=== PATIENT | female | born 1960 | race Caucasian/White ===

== ENCOUNTER 2021-03-17 02:57 | Observation (INO) | payer OTHER ==
[~2021-03-17] VITALS: Ht 162.6 cm; Wt 55.4 kg
[2021-03-17] VITALS (8 sets, daily range): BP systolic 113–173; BP diastolic 72–94
[2021-03-17] MEDS ORDERED: MORPHINE 4 MG SYG (4MG/1ML) IVP SCH (04:00)
[2021-03-17] MEDS ORDERED: ONDANSETRON HCL 4 MG/2 ML VIAL IVP SCH (04:00)
[2021-03-17 04:33] LABS: BASOPHILS % (AUTO) 0.7 % (0.0-5.0); EOSINOPHILS % (AUTO) 2.7 % (0.0-8.0); HEMATOCRIT 39.5 % (36-48); LYMPHOCYTES % (AUTO) 13.9 % (21.0-51.0); MEAN CORPUSCULAR HEMOGLOBIN 32.7 pg (27.0-33.0); MEAN CORPUSCULAR HGB CONC 33.7 g/dL (32.0-36.0); MEAN CORPUSCULAR VOLUME 97.1 fL (79-99); MONOCYTES % (AUTO) 6.8 % (3.0-13.0); NEUTROPHILS % (AUTO) 75.6 % (40.0-77.0); PLATELET COUNT (AUTO) 100 K/uL (130-400); RED BLOOD CELL COUNT(AUTO) 4.07 MIL/uL (4.00-5.50); RED CELL DISTRIBUTION WIDTH 14.1 % (11.0-15.5)
[2021-03-17 04:38] LABS: CARBON DIOXIDE 27 mmol/L (21-32); CHLORIDE 102 mmol/L (101-111); CREATININE 0.9 mg/dL (0.5-1.5); GLOMERULAR FILTR. RATE CALC 68 mL/min (>60); GLUCOSE,RANDOM 85 mg/dL (70-105); POTASSIUM 3.1 mmol/L (3.5-5.1); SODIUM SERUM 140 mmol/L (136-145); UREA NITROGEN, BLOOD 4 mg/dL (7-18)
[2021-03-17 04:42] LABS: INR 1.16 (0.85-1.15); PROTHROMBIN TIME 12.5 SEC (9.6-11.6)
[2021-03-17 04:54] LABS: ALANINE AMINOTRANSFERASE 42 U/L (12-78); ALBUMIN 2.7 g/dL (3.5-5.0); ASPARTATE AMINOTRANSFERASE 126 U/L (10-37); BILIRUBIN,TOTAL 2.1 mg/dL (0.2-1.0); CREATINE KINASE, TOTAL 188 U/L (21-232); MYOGLOBIN 77 ng/mL (10-92); TOTAL PROTEIN, SERUM 9.7 g/dL (6.0-8.3); TROPONIN I < 0.04 ng/mL (0.00-0.06)
[2021-03-17 04:55] LABS: B-TYPE NATRIURETIC PEPTIDE 17 pg/mL (0-100)
[2021-03-17 05:08] LABS: BASOPHILS % (MANUAL) 2 % (0-2); EOSINOPHILS % (MANUAL) 2 % (1-6); LYMPHOCYTES % (MANUAL) 13 % (22-44); MAN.DIFF COMMENT-IMPRESSION MANUAL DIFFERENTIAL; MONOCYTES % (MANUAL) 6 % (2-9); SEGMENTED NEUTROPHILS % 77 % (40-70)
[2021-03-17 05:09] LABS: PLATELET MORPHOLOGY COMMENT MARKED DECREASE
[2021-03-17 05:58] LABS: APPEARANCE,URINE Clear (CLEAR); BILIRUBIN,URINE Negative (NEGATIVE); COLOR,URINE Yellow (YELLOW); GLUCOSE, URINE (UA) Negative (NEGATIVE); KETONES,URINE Negative (NEGATIVE); LEUKOCYTE ESTERASE ,URINE Large (NEGATIVE); NITRATE,URINE Positive (NEGATIVE); OCCULT BLOOD,URINE Small (NEGATIVE); PH,URINE 6.5 (5.0-8.0); PROTEIN,URINE Negative (NEGATIVE)
[2021-03-17 06:09] LABS: BACTERIA,URINE Moderate /HPF (None Seen); SQUAMOUS EPITHELIAL CELL,UR Few /HPF (0-2)
[2021-03-17] MEDS ORDERED: FUROSEMIDE 20MG VIAL (10MG/ML) IV SCH (07:00)
[2021-03-17] MEDS ORDERED: CEFTRIAXONE SODIUM 1 GM IVP SCH ×2 (07:00→19:45)
[2021-03-17] MEDS ORDERED: POTASSIUM CHLORIDE 20MEQ/100ML 100 ML IV PRN (07:15)
[2021-03-17] MEDS ORDERED: SODIUM CHLORIDE 0.9% 10 ML VIAL IVP PRN (07:15)
[2021-03-17] MEDS ORDERED: LIDOCAINE HCL-MPF 1% 2ML VIAL IJ PRN (07:15)
[2021-03-17] MEDS ORDERED: KCL 20 MEQ ERTAB PO PRN (07:15)
[2021-03-17] MEDS: SPIRONOLACTONE 25 MG TAB PO SCH ×2 (07:47→21:32)
[2021-03-17] MEDS: POTASSIUM CHLORIDE 10% ELIXIR 20 MEQ/15 ML UDCUP PO PRN ×4 (07:50→16:22)
[2021-03-17] MEDS ORDERED: ENOXAPARIN SODIUM 30 MG/0.3 ML SQ SCH (09:00)
[2021-03-17] MEDS ORDERED: PHARMACY COMMUNICATION MISC SCH (18:30)
[2021-03-17] MEDS ORDERED: KETOROLAC 30MG VIAL (30MG/ML) IV SCH (18:30)
[2021-03-17] MEDS ORDERED: ONDANSETRON HCL 4 MG/2 ML VIAL IVP PRN (18:30)
[2021-03-17] MEDS: ACETAMINOPHEN 325 MG TAB PO PRN (18:51)
[2021-03-18] MEDS ORDERED: TYLENOL PM PO (00:35)
[2021-03-18 04:06] VITALS: BP 148/94
[2021-03-18 05:53] LABS: MEAN CORPUSCULAR HEMOGLOBIN 32.8 pg (27.0-33.0); MEAN CORPUSCULAR HGB CONC 33.7 g/dL (32.0-36.0); MEAN CORPUSCULAR VOLUME 97.4 fL (79-99); PLATELET COUNT (AUTO) 69 K/uL (130-400); RED BLOOD CELL COUNT(AUTO) 3.08 MIL/uL (4.00-5.50); RED CELL DISTRIBUTION WIDTH 13.8 % (11.0-15.5); WHITE BLOOD COUNT (AUTO) 2.3 K/uL (4.8-10.8)
[2021-03-18 06:02] LABS: ALBUMIN 1.9 g/dL (3.5-5.0); BILIRUBIN,TOTAL 1.3 mg/dL (0.2-1.0); POTASSIUM 3.7 mmol/L (3.5-5.1); TOTAL PROTEIN, SERUM 6.8 g/dL (6.0-8.3)
[2021-03-18 06:12] LABS: EOSINOPHILS % (MANUAL) 2 % (1-6); LYMPHOCYTES % (MANUAL) 8 % (22-44); MAN.DIFF COMMENT-IMPRESSION MANUAL DIFFERENTIAL; MONOCYTES % (MANUAL) 7 % (2-9); SEGMENTED NEUTROPHILS % 83 % (40-70)
[2021-03-18 06:13] LABS: PLATELET MORPHOLOGY COMMENT DECREASED
[2021-03-18 07:54] VITALS: BP 155/86
[2021-03-18] MEDS: ACETAMINOPHEN 325 MG TAB PO PRN (08:10)
[2021-03-18] MEDS ORDERED: THIAMINE HCL 100 MG/ML 2ML VIAL IVP SCH (09:00)
[2021-03-18] MEDS ORDERED: CYANOCOBALAMIN (VITAMIN B-12) 1000 MCG/ML 1ML VIAL IM SCH (09:00)
[2021-03-18] MEDS ORDERED: MAGNESIUM 2GM PREMIX 50ML 50 ML IV SCH (09:00)
[2021-03-18 11:17] VITALS: BP 140/89
[2021-03-18] MEDS ORDERED: BUSPIRONE HCL 5 MG TABLET PO SCH (21:00)
== END 2021-03-18 16:40 | disposition left against medical advice (07) ==
LOC: EDH 03:57 → EDHIP 03:58 → 3BH 23:35
PROVIDERS: ADMIT Internal Medicine; ATTEND Internal Medicine
DX: L03.119 Cellulitis of unspecified part of limb (principal); E88.09 Other disorders of plasma-protein metabolism, not elsewhere classified; E87.6 Hypokalemia; K70.31 Alcoholic cirrhosis of liver with ascites; F41.1 Generalized anxiety disorder; D61.818 Other pancytopenia; I10 Essential (primary) hypertension; K86.1 Other chronic pancreatitis; N39.0 Urinary tract infection, site not specified; F17.210 Nicotine dependence, cigarettes, uncomplicated; Z91.14 Patient's other noncompliance with medication regimen; Z79.899 Other long term (current) drug therapy; Z88.8 Allergy status to other drugs, medicaments and biological substances; Z88.6 Allergy status to analgesic agent
CPT/HCPCS: 36415 ×2; 71250; 74176; 76705; 80053 ×2; 81001; 82550; 83735; 83874; 83880; 84132; 84443; 84484; 85025; 85027; 85610; 87077; 87088; 87186; 93005; 93970; 96365; 96372 ×2; 96375 ×2; 99285; G0378 ×34; J0696; J1650; J1940; J2270; J2405; J3411; J3420; J3475

== ENCOUNTER 2023-12-06 10:31 | Emergency (ER) | payer BC, OTHER ==
[~2023-12-06] VITALS: Ht 162.6 cm; Wt 60.8 kg
[~2023-12-06 10:31] MED LIST: TYLENOL PM PO
[2023-12-06 11:01] LABS: BASOPHILS # (AUTO) 0.02 K/uL (0.00-0.20); BASOPHILS % (AUTO) 0.8 % (0.0-5.0); EOSINOPHILS # (AUTO) 0.06 K/uL (0.00-0.70); EOSINOPHILS % (AUTO) 2.4 % (0.0-8.0); HEMATOCRIT 35.2 % (36-48); IMMATURE GRANULOCYTE ABSOLUTE 0.01 K/uL (0-1); LYMPHOCYTES # (AUTO) 0.2 K/uL (1.0-4.8); LYMPHOCYTES % (AUTO) 7.5 % (21.0-51.0); MEAN CORPUSCULAR HEMOGLOBIN 28.3 pg (27.0-33.0); MEAN CORPUSCULAR HGB CONC 32.7 g/dL (32.0-36.0); MEAN CORPUSCULAR VOLUME 86.7 fL (79-99); MONOCYTES # (AUTO) 0.3 K/uL (0.1-1.0); MONOCYTES % (AUTO) 11.9 % (3.0-13.0); NEUTROPHILS # (AUTO) 1.9 K/uL (1.8-7.7); PLATELET COUNT (AUTO) 85 K/uL (130-400); RED BLOOD CELL COUNT(AUTO) 4.06 MIL/uL (4.00-5.50); RED CELL DISTRIBUTION WIDTH 16.7 % (11.0-15.5); WHITE BLOOD COUNT (AUTO) 2.5 K/uL (4.8-10.8)
[2023-12-06 11:08] LABS: CREATININE 1.3 mg/dL (0.5-1.5); POTASSIUM 3.8 mmol/L (3.5-5.1)
[2023-12-06 11:12] LABS: ALBUMIN 1.8 g/dL (3.5-5.0); BILIRUBIN,TOTAL 0.6 mg/dL (0.2-1.0); MAGNESIUM 1.6 mg/dL (1.80-2.40); TOTAL PROTEIN, SERUM 7.4 g/dL (6.0-8.3)
[2023-12-06 11:34] LABS: INR 1.12 (0.85-1.15); PROTHROMBIN TIME 12.9 SEC (9.6-11.6)
[2023-12-06 11:35] LABS: PARTIAL THROMBOPLASTIN TIME 33.9 SEC (26.3-35.5)
[2023-12-06 12:05] LABS: EOSINOPHILS % (MANUAL) 2 % (1-6); LYMPHOCYTES % (MANUAL) 7 % (22-44); MAN.DIFF COMMENT-IMPRESSION MANUAL DIFFERENTIAL; MONOCYTES % (MANUAL) 13 % (2-9); PLATELET MORPHOLOGY COMMENT DECREASED; SEGMENTED NEUTROPHILS % 78 % (40-70); TOTAL CELLS COUNTED 100
[2023-12-06] MEDS: ALBUMIN (HUMAN) 25% 200 ML IV ONE (12:13)
[2023-12-06 14:01] VITALS: BP 165/94; PULSE 95; RESP 18; O2SAT 95
[2023-12-06] MEDS: MAGNESIUM OXIDE 400 MG TABLET PO ONE (14:43)
== END 2023-12-06 14:43 | disposition home or self-care (01) ==
LOC: EDH 10:31
DX: R18.8 Other ascites (principal); E83.42 Hypomagnesemia; E83.51 Hypocalcemia; D61.818 Other pancytopenia; K74.60 Unspecified cirrhosis of liver; I10 Essential (primary) hypertension; F17.200 Nicotine dependence, unspecified, uncomplicated
CPT/HCPCS: 49083; 99285; 83735; 80053; 82140; 83690; 85025; 85610; 85730; 36415; P9047; C1729

== ENCOUNTER 2023-12-27 09:41 | Emergency (ER) | payer BC ==
[~2023-12-27] VITALS: Ht 162.6 cm; Wt 62.6 kg
[2023-12-27 10:19] LABS: BASOPHILS # (AUTO) 0.02 K/uL (0.00-0.20); BASOPHILS % (AUTO) 0.9 % (0.0-5.0); EOSINOPHILS # (AUTO) 0.07 K/uL (0.00-0.70); EOSINOPHILS % (AUTO) 3.1 % (0.0-8.0); HEMATOCRIT 37.1 % (36-48); IMMATURE GRANULOCYTE ABSOLUTE 0.01 K/uL (0-1); LYMPHOCYTES # (AUTO) 0.2 K/uL (1.0-4.8); MEAN CORPUSCULAR HEMOGLOBIN 28.5 pg (27.0-33.0); MEAN CORPUSCULAR HGB CONC 32.1 g/dL (32.0-36.0); MEAN CORPUSCULAR VOLUME 88.8 fL (79-99); MONOCYTES # (AUTO) 0.3 K/uL (0.1-1.0); MONOCYTES % (AUTO) 10.9 % (3.0-13.0); NEUTROPHILS # (AUTO) 1.8 K/uL (1.8-7.7); NEUTROPHILS % (AUTO) 77.7 % (40.0-77.0); PLATELET COUNT (AUTO) 97 K/uL (130-400); RED BLOOD CELL COUNT(AUTO) 4.18 MIL/uL (4.00-5.50); WHITE BLOOD COUNT (AUTO) 2.3 K/uL (4.8-10.8)
[2023-12-27] MEDS ORDERED: ALBUMIN (HUMAN) 25% 100 ML IV PRN ×2 (10:30)
[2023-12-27 10:38] LABS: INR 1.06 (0.85-1.15); PROTHROMBIN TIME 12.4 SEC (9.6-11.6)
[2023-12-27 10:39] LABS: CREATININE 1.4 mg/dL (0.5-1.5); POTASSIUM 4.1 mmol/L (3.5-5.1)
[2023-12-27 10:40] LABS: PARTIAL THROMBOPLASTIN TIME 31.7 SEC (26.3-35.5)
[2023-12-27 10:44] LABS: ALBUMIN 1.9 g/dL (3.5-5.0); BILIRUBIN,TOTAL 0.7 mg/dL (0.2-1.0); TOTAL PROTEIN, SERUM 7.6 g/dL (6.0-8.3)
[2023-12-27 12:09] LABS: EOSINOPHILS % (MANUAL) 2 % (1-6); LYMPHOCYTES % (MANUAL) 7 % (22-44); MAN.DIFF COMMENT-IMPRESSION MANUAL DIFFERENTIAL; MONOCYTES % (MANUAL) 9 % (2-9); REACTIVE LYMPHOCYTES 1 % (0-0); SEGMENTED NEUTROPHILS % 81 % (40-70); TOTAL CELLS COUNTED 100
[2023-12-27 12:10] LABS: PLATELET MORPHOLOGY COMMENT DECREASED
[2023-12-27 13:20] VITALS: BP 145/88; PULSE 78; RESP 18; O2SAT 98
== END 2023-12-27 13:21 | disposition home or self-care (01) ==
LOC: EDH 09:41
DX: K74.60 Unspecified cirrhosis of liver (principal); R18.8 Other ascites; F17.200 Nicotine dependence, unspecified, uncomplicated; Z88.8 Allergy status to other drugs, medicaments and biological substances
CPT/HCPCS: 49083; 99285; 96365; 80053; 85025; 85610; 85730; 36415; C1729

== ENCOUNTER 2024-01-20 11:34 | Emergency (ER) | payer BC ==
[~2024-01-20] VITALS: Ht 162.6 cm; Wt 47.2 kg
[~2024-01-20 11:34] MED LIST changes: +FURO40TA5 PO; +SPIR50TA5 PO
[2024-01-20 11:59] VITALS: BP 116/73; PULSE 94; RESP 18; O2SAT 97
[2024-01-20] MEDS ORDERED: LEVETIRACETAM 1,000 MG in 0.9%NACL 100ML 100 ML IV SCH ×2 (12:00→14:00)
[2024-01-20] MEDS: LEVETIRACETAM 1,000 MG in 0.9%NACL 100ML 100 ML IV ONE (12:10)
[2024-01-20 13:12] LABS: BASOPHILS # (AUTO) 0.01 K/uL (0.00-0.20); BASOPHILS % (AUTO) 0.5 % (0.0-5.0); EOSINOPHILS # (AUTO) 0.04 K/uL (0.00-0.70); EOSINOPHILS % (AUTO) 2.2 % (0.0-8.0); HEMATOCRIT 27.6 % (36-48); IMMATURE GRANULOCYTE ABSOLUTE 0.01 K/uL (0-1); LYMPHOCYTES # (AUTO) 0.1 K/uL (1.0-4.8); LYMPHOCYTES % (AUTO) 5.5 % (21.0-51.0); MEAN CORPUSCULAR HEMOGLOBIN 28.5 pg (27.0-33.0); MEAN CORPUSCULAR HGB CONC 33.7 g/dL (32.0-36.0); MEAN CORPUSCULAR VOLUME 84.7 fL (79-99); MONOCYTES # (AUTO) 0.3 K/uL (0.1-1.0); MONOCYTES % (AUTO) 14.3 % (3.0-13.0); NEUTROPHILS # (AUTO) 1.4 K/uL (1.8-7.7); PLATELET COUNT (AUTO) 70 K/uL (130-400); RED BLOOD CELL COUNT(AUTO) 3.26 MIL/uL (4.00-5.50); RED CELL DISTRIBUTION WIDTH 15.7 % (11.0-15.5); WHITE BLOOD COUNT (AUTO) 1.8 K/uL (4.8-10.8)
[2024-01-20 13:23] LABS: CREATININE 1.5 mg/dL (0.5-1.0); POTASSIUM 3.6 mmol/L (3.5-5.1)
[2024-01-20 13:28] LABS: ALBUMIN 1.8 g/dL (3.5-5.0); BILIRUBIN,TOTAL 0.5 mg/dL (0.2-1.0); TOTAL PROTEIN, SERUM 6.4 g/dL (6.0-8.3)
[2024-01-20 14:08] LABS: PLATELET MORPHOLOGY COMMENT DECREASED
[2024-01-20] MEDS: ACETAMINOPHEN 325 MG TAB PO ONE (14:30)
[2024-01-20] MEDS ORDERED: POTASSIUM SUPPLIMENT PO (22:31)
[2024-01-20] MEDS ORDERED: KEPPRA PO (22:32)
== END 2024-01-20 15:01 | disposition home or self-care (01) ==
LOC: EDH 11:34
DX: G40.909 Epilepsy, unspecified, not intractable, without status epilepticus (principal); Z79.899 Other long term (current) drug therapy; Z98.890 Other specified postprocedural states; Z88.8 Allergy status to other drugs, medicaments and biological substances
CPT/HCPCS: 99284; 96374; 80053; 85025; 36415; J1953

== ENCOUNTER 2024-01-20 20:17 | Observation (INO) | payer BC ==
[~2024-01-20] VITALS: Ht 162.6 cm; Wt 49.4 kg
[2024-01-20] MEDS: DEXTROSE 5 %-0.45 % NACL 1,000 ML IV SCH (21:27)
[2024-01-20] MEDS ORDERED: POTASSIUM SUPPLIMENT PO (22:31)
[2024-01-20] MEDS ORDERED: KEPPRA PO (22:32)
[2024-01-20 23:05] VITALS: O2SAT 96
[2024-01-21] VITALS (17 sets, daily range): BP systolic 96–159; BP diastolic 54–92; PULSE 84–96; RESP 17–19; O2SAT 94–95
[2024-01-21 06:18] LABS: PROTHROMBIN TIME 11.8 SEC (9.6-11.6)
[2024-01-21 14:47] LABS: BODY FLUID RBC 997 /cu. mm.; BODY FLUID WBC 126 /cu. mm.
[2024-01-21 15:37] LABS: SPECIMENTYPE,BODY FLUID ASCITES
[2024-01-21 15:38] LABS: APPEARANCE BODY FLUID CLOUDY (CLEAR); COLOR,BODY FLUID OTHER (LT YELLOW); TOTAL VOLUME,BODY FLUID 2100 mL
[2024-01-21 18:33] LABS: BF LYMPHOCYTE 24 %; BF MACROPHAGE 20; BF MESOTHELIAL 18 %; BF TOTAL CELLS COUNTED 50
[2024-01-22 01:19] LABS: AMPHET/METH SCREEN,URINE NEGATIVE (NEGATIVE); BARBITURATE SCREEN, URINE NEGATIVE (NEGATIVE); BENZODIAZEPINES SCREEN,URINE NEGATIVE (NEGATIVE); CANNABINOID SCREEN,URINE NEGATIVE (NEGATIVE); COCAINE SCREEN,URINE NEGATIVE (NEGATIVE); OPIATE SCREEN,URINE NEGATIVE (NEGATIVE); PHENCYCLIDINE SCREEN,URINE NEGATIVE (NEGATIVE)
[2024-01-22 04:00] VITALS: BP 109/57; PULSE 83; RESP 18
[2024-01-22 05:12] LABS: HEMATOCRIT 32.9 % (36-48); MEAN CORPUSCULAR HEMOGLOBIN 28.2 pg (27.0-33.0); MEAN CORPUSCULAR HGB CONC 32.5 g/dL (32.0-36.0); MEAN CORPUSCULAR VOLUME 86.8 fL (79-99); PLATELET COUNT (AUTO) 92 K/uL (130-400); RED BLOOD CELL COUNT(AUTO) 3.79 MIL/uL (4.00-5.50); RED CELL DISTRIBUTION WIDTH 15.4 % (11.0-15.5); WHITE BLOOD COUNT (AUTO) 2.6 K/uL (4.8-10.8)
[2024-01-22 05:36] LABS: ALBUMIN 1.8 g/dL (3.5-5.0); BILIRUBIN,TOTAL 0.6 mg/dL (0.2-1.0); CREATININE 1.3 mg/dL (0.5-1.0); POTASSIUM 3.9 mmol/L (3.5-5.1); TOTAL PROTEIN, SERUM 6.6 g/dL (6.0-8.3)
[2024-01-22 05:44] LABS: BASOPHILS % (MANUAL) 3 % (0-2); EOSINOPHILS % (MANUAL) 2 % (1-6); LYMPHOCYTES % (MANUAL) 9 % (22-44); MAN.DIFF COMMENT-IMPRESSION MANUAL DIFFERENTIAL; MONOCYTES % (MANUAL) 12 % (2-9); PLATELET MORPHOLOGY COMMENT DECREASED; SEGMENTED NEUTROPHILS % 74 % (40-70); TOTAL CELLS COUNTED 100
[2024-01-22 07:20] VITALS: BP 115/67; PULSE 90; RESP 19
[2024-01-22 08:20] VITALS: O2SAT 95
[2024-01-22 11:09] VITALS: BP 114/62; PULSE 86; RESP 19
[2024-01-22] MEDS ORDERED: CALC-1277 PO (16:37)
== END 2024-01-22 13:02 | disposition home or self-care (01) ==
LOC: EDH 20:17 → EDHIP 21:02 → 3BH 22:07
PROVIDERS: ADMIT Internal Medicine; ATTEND Internal Medicine
DX: S00.31XA Abrasion of nose, initial encounter (principal); K70.31 Alcoholic cirrhosis of liver with ascites; G40.909 Epilepsy, unspecified, not intractable, without status epilepticus; F03.90 Unspecified dementia, unspecified severity, without behavioral disturbance, psychotic disturbance, mood disturbance, and anxiety; D61.818 Other pancytopenia; Z88.5 Allergy status to narcotic agent; Z88.8 Allergy status to other drugs, medicaments and biological substances; X58.XXXA Exposure to other specified factors, initial encounter; Y93.89 Activity, other specified; Y92.89 Other specified places as the place of occurrence of the external cause; Y99.8 Other external cause status
CPT/HCPCS: 96360; 96361 ×3; 99284 ×2; 80053 ×3; 82140; 85025 ×2; 36415 ×4; 96374; 89051; 85610; 87071; 87205; 49083; 84484; 80305; 85027; 93005; G0378 ×40; J1953; J7042; C1729

== ENCOUNTER 2024-02-14 15:54 | Emergency (ER) | payer BC ==
[~2024-02-14] VITALS: Ht 162.6 cm; Wt 54.4 kg
[~2024-02-14 15:54] MED LIST changes: +CALC-1277 PO; +KEPPRA PO; +POTASSIUM SUPPLIMENT PO
[2024-02-14] MEDS: CEFTRIAXONE 2GM VIAL IVPB ONE (18:48)
[2024-02-14] MEDS: ALBUMIN (HUMAN) 25% 50 ML IV SCH (18:53)
[2024-02-14 19:08] LABS: BASOPHILS # (AUTO) 0.02 K/uL (0.00-0.20); BASOPHILS % (AUTO) 0.6 % (0.0-5.0); EOSINOPHILS # (AUTO) 0.06 K/uL (0.00-0.70); EOSINOPHILS % (AUTO) 1.9 % (0.0-8.0); HEMATOCRIT 31.8 % (36-48); IMMATURE GRANULOCYTE ABSOLUTE 0.02 K/uL (0-1); LYMPHOCYTES # (AUTO) 0.1 K/uL (1.0-4.8); LYMPHOCYTES % (AUTO) 3.8 % (21.0-51.0); MEAN CORPUSCULAR HGB CONC 32.7 g/dL (32.0-36.0); MEAN CORPUSCULAR VOLUME 85.7 fL (79-99); MONOCYTES # (AUTO) 0.4 K/uL (0.1-1.0); MONOCYTES % (AUTO) 11.5 % (3.0-13.0); NEUTROPHILS # (AUTO) 2.6 K/uL (1.8-7.7); NEUTROPHILS % (AUTO) 81.6 % (40.0-77.0); PLATELET COUNT (AUTO) 91 K/uL (130-400); RED BLOOD CELL COUNT(AUTO) 3.71 MIL/uL (4.00-5.50); RED CELL DISTRIBUTION WIDTH 15.6 % (11.0-15.5); WHITE BLOOD COUNT (AUTO) 3.1 K/uL (4.8-10.8)
[2024-02-14 19:25] LABS: CREATININE 1.7 mg/dL (0.5-1.0); POTASSIUM 4.3 mmol/L (3.5-5.1)
[2024-02-14 19:26] LABS: B-TYPE NATRIURETIC PEPTIDE 31 pg/mL (0-100)
[2024-02-14 19:30] LABS: ALBUMIN 1.7 g/dL (3.5-5.0); BILIRUBIN,DIRECT 0.3 mg/dL (0.0-0.3); BILIRUBIN,TOTAL 0.6 mg/dL (0.2-1.0); TOTAL PROTEIN, SERUM 6.9 g/dL (6.0-8.3)
[2024-02-14] MEDS ORDERED: LACT10SO85 PO (21:13)
[2024-02-14] MEDS: LACTULOSE 20 GM/30 ML UDCUP PO ONE (22:08)
[2024-02-14 22:16] VITALS: BP 108/69; PULSE 94; RESP 18; O2SAT 98
[2024-02-15] MEDS ORDERED: LEVE500T19 PO (03:55)
== END 2024-02-14 22:17 | disposition home or self-care (01) ==
LOC: EDH 15:54
DX: K74.60 Unspecified cirrhosis of liver (principal); Z79.899 Other long term (current) drug therapy; Z98.890 Other specified postprocedural states; Z88.8 Allergy status to other drugs, medicaments and biological substances
CPT/HCPCS: 99284; 96366; 74176; 96365; 71045; 80076; 84484; 80048; 83880; 82140; 85025; 87040 ×2; 83605; 36415; 96368; 93005; P9047; J0696

== ENCOUNTER 2024-02-15 00:01 | Inpatient (IN) | payer BC ==
[~2024-02-15] VITALS: Ht 162.6 cm; Wt 51.7 kg
[2024-02-15] VITALS (17 sets, daily range): BP systolic 13–136; BP diastolic 52–72; PULSE 85–101; RESP 16–22; O2SAT 96
[~2024-02-15 00:01] MED LIST changes: +LACT10SO85 PO
[2024-02-15] MEDS: LEVETIRACETAM 500 MG TABLET PO STA (01:02)
[2024-02-15] MEDS ORDERED: ONDANSETRON 4MG INJ IVP PRN (02:00)
[2024-02-15] MEDS ORDERED: LEVE500T19 PO (03:55)
[2024-02-15 05:10] LABS: BASOPHILS # (AUTO) 0.03 K/uL (0.00-0.20); EOSINOPHILS # (AUTO) 0.07 K/uL (0.00-0.70); EOSINOPHILS % (AUTO) 2.3 % (0.0-8.0); IMMATURE GRANULOCYTE ABSOLUTE 0.02 K/uL (0-1); LYMPHOCYTES # (AUTO) 0.1 K/uL (1.0-4.8); LYMPHOCYTES % (AUTO) 3.3 % (21.0-51.0); MEAN CORPUSCULAR HEMOGLOBIN 27.6 pg (27.0-33.0); MEAN CORPUSCULAR HGB CONC 32.6 g/dL (32.0-36.0); MEAN CORPUSCULAR VOLUME 84.6 fL (79-99); MONOCYTES # (AUTO) 0.5 K/uL (0.1-1.0); MONOCYTES % (AUTO) 17.5 % (3.0-13.0); NEUTROPHILS # (AUTO) 2.3 K/uL (1.8-7.7); NEUTROPHILS % (AUTO) 75.2 % (40.0-77.0); PLATELET COUNT (AUTO) 71 K/uL (130-400); RED BLOOD CELL COUNT(AUTO) 3.19 MIL/uL (4.00-5.50); RED CELL DISTRIBUTION WIDTH 15.5 % (11.0-15.5)
[2024-02-15 05:19] LABS: CREATININE 1.7 mg/dL (0.5-1.0); POTASSIUM 5.6 mmol/L (3.5-5.1)
[2024-02-15 05:31] LABS: ALBUMIN 1.7 g/dL (3.5-5.0); BILIRUBIN,TOTAL 0.4 mg/dL (0.2-1.0); THYROID STIMULATING HORMONE 1.5 uIU/mL (0.36-3.74); TOTAL PROTEIN, SERUM 6.3 g/dL (6.0-8.3)
[2024-02-15 05:40] LABS: INR 0.98 (0.85-1.15); PROTHROMBIN TIME 11.6 SEC (9.6-11.6)
[2024-02-15 06:17] LABS: BAND NEUTROPHILS % (MANUAL) 7 % (0-2); EOSINOPHILS % (MANUAL) 2 % (1-6); LYMPHOCYTES % (MANUAL) 3 % (22-44); MAN.DIFF COMMENT-IMPRESSION MANUAL DIFFERENTIAL; MONOCYTES % (MANUAL) 9 % (2-9); REACTIVE LYMPHOCYTES 2 % (0-0); SEGMENTED NEUTROPHILS % 77 % (40-70); TOTAL CELLS COUNTED 100
[2024-02-15 06:18] LABS: PLATELET MORPHOLOGY COMMENT DECREASED; WBC MORPHOLOGY REACTIVE LYMPHS 1+
[2024-02-15] MEDS ORDERED: LEVETIRACETAM 500 MG/5 ML SD VIAL IV SCH (09:00)
[2024-02-15] MEDS ORDERED: FAMOTIDINE 20MG VIAL IV SCH (09:00)
[2024-02-15] MEDS: LEVETIRACETAM 500 MG in 0.9%NACL 100ML 100 ML IV SCH (10:30)
[2024-02-15] MEDS: FAMOTIDINE 20MG VIAL IV SCH (10:30)
[2024-02-15] MEDS ORDERED: ALBUMIN (HUMAN) 25% 200 ML IV ONE (10:44)
[2024-02-15] MEDS: FUROSEMIDE 20MG VIAL IV SCH (11:00)
[2024-02-15] MEDS: CEFTRIAXONE 1G VIAL IVPB SCH (11:00)
[2024-02-15] MEDS ORDERED: COMPOUND IV MISC 1 EACH IVSOLN MISC PRN (12:00)
[2024-02-15 12:06] LABS: INR 1.03 (0.85-1.15); PROTHROMBIN TIME 12.1 SEC (9.6-11.6)
[2024-02-15 12:08] LABS: ABG BASE EXCESS -9.7 mmol/L (-2.0-3.0); ABG HCO3 12.4 mmol/L (21.0-28.0); ABG OXYGEN SATURATION 96.4 % (95.0-99.0); ABG PCO2 20 mmHg (32-45); ABG PH 7.404 (7.35-7.450); VENT MODE, BG RA (ROOM AIR)
[2024-02-15 12:22] LABS: CREATININE 1.6 mg/dL (0.5-1.0); POTASSIUM 5.1 mmol/L (3.5-5.1)
[2024-02-15 15:07] LABS: APPEARANCE BODY FLUID SLIGHTLY CLOUDY (CLEAR); SPECIMENTYPE,BODY FLUID ASCITES
[2024-02-15 15:08] LABS: TOTAL VOLUME,BODY FLUID 950 mL
[2024-02-15 15:09] LABS: BODY FLUID RBC 925 /cu. mm.; BODY FLUID WBC 55 /cu. mm.
[2024-02-15 16:12] LABS: BF LYMPHOCYTE 25 %; BF MACROPHAGE 48; BF MESOTHELIAL 6 %; BF OTHER CELLS 3; BF TOTAL CELLS COUNTED 100
[2024-02-15] MEDS: LACTULOSE 20 GM/30 ML UDCUP PO SCH (21:00)
[2024-02-15 23:20] LABS: ADD UA MICROSCOPIC NO; APPEARANCE,URINE CLEAR (CLEAR); BILIRUBIN,URINE NEGATIVE (NEGATIVE); COLOR,URINE LIGHT-YELLOW (YELLOW); GLUCOSE, URINE (UA) NEGATIVE (NEGATIVE); KETONES,URINE NEGATIVE (NEGATIVE); LEUKOCYTE ESTERASE ,URINE NEGATIVE Leu/uL (NEGATIVE); NITRATE,URINE NEGATIVE (NEGATIVE); OCCULT BLOOD,URINE NEGATIVE (NEGATIVE); PROTEIN,URINE NEGATIVE (NEGATIVE); UROBILINOGEN,URINE 0.2 mg/dL (0.2-1.0)
[2024-02-15 23:26] LABS: CHLORIDE,URINE RANDOM 106 mmol/L (110-250); CREATININE,URINE RANDOM 20.65 mg/dL (30-135); POTASSIUM,URINE RANDOM 58 mmol/L (25-125); SODIUM,URINE RANDOM 45 mmol/l (40-220)
[2024-02-16 03:45] VITALS: BP 124/62; PULSE 98; RESP 16
[2024-02-16 05:50] LABS: HEMATOCRIT 28.4 % (36-48); MEAN CORPUSCULAR HEMOGLOBIN 27.7 pg (27.0-33.0); MEAN CORPUSCULAR VOLUME 86.6 fL (79-99); PLATELET COUNT (AUTO) 64 K/uL (130-400); RED BLOOD CELL COUNT(AUTO) 3.28 MIL/uL (4.00-5.50); RED CELL DISTRIBUTION WIDTH 15.1 % (11.0-15.5); WHITE BLOOD COUNT (AUTO) 2.2 K/uL (4.8-10.8)
[2024-02-16 06:11] LABS: ALBUMIN 2.2 g/dL (3.5-5.0); BILIRUBIN,TOTAL 0.6 mg/dL (0.2-1.0); CREATININE 1.8 mg/dL (0.5-1.0); MAGNESIUM 1.7 mg/dL (1.80-2.40); PHOSPHORUS 5.6 mg/dL (2.5-4.9); POTASSIUM 3.7 mmol/L (3.5-5.1); TOTAL PROTEIN, SERUM 6.2 g/dL (6.0-8.3)
[2024-02-16 06:41] LABS: EOSINOPHILS % (MANUAL) 4 % (1-6); LYMPHOCYTES % (MANUAL) 27 % (22-44); MAN.DIFF COMMENT-IMPRESSION MANUAL DIFFERENTIAL; MONOCYTES % (MANUAL) 1 % (2-9); SEGMENTED NEUTROPHILS % 68 % (40-70); TOTAL CELLS COUNTED 100; WBC MORPHOLOGY NORMAL
[2024-02-16 06:42] LABS: PLATELET MORPHOLOGY COMMENT DECREASED
[2024-02-16 07:28] VITALS: BP 113/69; PULSE 91; RESP 19
[2024-02-16 08:00] VITALS: O2SAT 96
[2024-02-16] MEDS ORDERED: MAGNESIUM 2GM PREMIX 50ML 50 ML IV PRN (08:30)
[2024-02-16 11:32] VITALS: BP 119/65; PULSE 95; RESP 17
[2024-02-16 16:07] VITALS: BP 123/70; PULSE 72; RESP 18
[2024-02-16 20:00] VITALS: BP 113/59; PULSE 99; RESP 17; O2SAT 96
[2024-02-16] MEDS: ACETAMINOPHEN 325 MG TAB PO PRN (22:07)
[2024-02-17] VITALS (14 sets, daily range): BP systolic 99–142; BP diastolic 58–82; PULSE 79–101; RESP 16–19; O2SAT 100
[2024-02-17 08:35] LABS: BASOPHILS # (AUTO) 0.01 K/uL (0.00-0.20); BASOPHILS % (AUTO) 0.4 % (0.0-5.0); EOSINOPHILS # (AUTO) 0.04 K/uL (0.00-0.70); EOSINOPHILS % (AUTO) 1.7 % (0.0-8.0); HEMATOCRIT 28.9 % (36-48); IMMATURE GRANULOCYTE ABSOLUTE 0.02 K/uL (0-1); LYMPHOCYTES # (AUTO) 0.1 K/uL (1.0-4.8); LYMPHOCYTES % (AUTO) 3.8 % (21.0-51.0); MEAN CORPUSCULAR HEMOGLOBIN 27.6 pg (27.0-33.0); MEAN CORPUSCULAR HGB CONC 33.2 g/dL (32.0-36.0); MONOCYTES # (AUTO) 0.3 K/uL (0.1-1.0); MONOCYTES % (AUTO) 13.1 % (3.0-13.0); NEUTROPHILS # (AUTO) 1.9 K/uL (1.8-7.7); NEUTROPHILS % (AUTO) 80.2 % (40.0-77.0); PLATELET COUNT (AUTO) 73 K/uL (130-400); RED BLOOD CELL COUNT(AUTO) 3.48 MIL/uL (4.00-5.50); RED CELL DISTRIBUTION WIDTH 15.3 % (11.0-15.5); WHITE BLOOD COUNT (AUTO) 2.4 K/uL (4.8-10.8)
[2024-02-17 08:50] LABS: MAGNESIUM 1.8 mg/dL (1.80-2.40)
[2024-02-17 08:58] LABS: POTASSIUM 2.8 mmol/L (3.5-5.1)
[2024-02-17 09:11] LABS: PROTHROMBIN TIME 11.8 SEC (9.6-11.6)
[2024-02-17 09:12] LABS: PARTIAL THROMBOPLASTIN TIME 30.5 SEC (26.3-35.5)
[2024-02-17] MEDS: KCL 20 MEQ ERTAB PO ONE (09:43)
[2024-02-17 09:50] LABS: BASOPHILS % (MANUAL) 1 % (0-2); LYMPHOCYTES % (MANUAL) 10 % (22-44); MAN.DIFF COMMENT-IMPRESSION MANUAL DIFFERENTIAL; MONOCYTES % (MANUAL) 5 % (2-9); PLATELET MORPHOLOGY COMMENT DECREASED; SEGMENTED NEUTROPHILS % 84 % (40-70); TOTAL CELLS COUNTED 100
[2024-02-17] MEDS ORDERED: FENTANYL CITRATE PF 50 MCG/1 ML 2ML VIAL ONE (13:32)
[2024-02-17] MEDS ORDERED: IOHEXOL-350 50ML VIAL IV ONE (13:32)
[2024-02-17] MEDS ORDERED: LIDOCAINE HCL 400MG/20ML VIAL ONE (13:32)
[2024-02-17 20:22] LABS: BILIRUBIN,TOTAL 0.5 mg/dL (0.2-1.0); CREATININE 1.7 mg/dL (0.5-1.0); TOTAL PROTEIN, SERUM 6.1 g/dL (6.0-8.3)
[2024-02-17 20:25] LABS: POTASSIUM 2.8 mmol/L (3.5-5.1)
[2024-02-17] MEDS ORDERED: POTASSIUM CHLORIDE 10% ELIXIR 20 MEQ/15 ML UDCUP PO PRN (22:30)
[2024-02-17] MEDS: KCL 20 MEQ ERTAB PO PRN (22:39)
[2024-02-17] MEDS: POTASSIUM CHLORIDE 20MEQ/100ML 100 ML IV PRN (22:39)
[2024-02-18 01:15] VITALS: BP 135/72; PULSE 97; RESP 18
[2024-02-18 03:55] VITALS: BP 112/61; PULSE 103; RESP 18
[2024-02-18 08:00] VITALS: BP 144/88; PULSE 71; RESP 18
[2024-02-18] MEDS ORDERED: POTA-364 PO (21:51)
== END 2024-02-18 12:30 | disposition left against medical advice (07) | DRG 441 ==
LOC: EDH 00:01 → EDHIP 01:02 → 3CH 02:18 → OBSVTOIN 11:48
PROVIDERS: ADMIT Internal Medicine; ATTEND Internal Medicine
PROC: 0W9G3ZZ Drainage of Peritoneal Cavity, Percutaneous Approach (ICD-10-PCS; principal; 2024-02-15)
PROC: 0JH63XZ Insertion of Tunneled Vascular Access Device into Chest Subcutaneous Tissue and Fascia, Percutaneous Approach (ICD-10-PCS; 2024-02-17)
PROC: 0WHG33Z Insertion of Infusion Device into Peritoneal Cavity, Percutaneous Approach (ICD-10-PCS; 2024-02-17)
PROC: 3E1M39Z Irrigation of Peritoneal Cavity using Dialysate, Percutaneous Approach (ICD-10-PCS; 2024-02-17)
DX: K76.82 Hepatic encephalopathy (principal); E43 Unspecified severe protein-calorie malnutrition; K76.7 Hepatorenal syndrome; K65.2 Spontaneous bacterial peritonitis; E87.1 Hypo-osmolality and hyponatremia; N17.9 Acute kidney failure, unspecified; R18.8 Other ascites; E87.20 Acidosis, unspecified; Z68.1 Body mass index [BMI] 19.9 or less, adult; G40.909 Epilepsy, unspecified, not intractable, without status epilepticus; E87.5 Hyperkalemia; N18.9 Chronic kidney disease, unspecified; F10.10 Alcohol abuse, uncomplicated; D72.819 Decreased white blood cell count, unspecified; D64.9 Anemia, unspecified; Z53.29 Procedure and treatment not carried out because of patient's decision for other reasons; K74.69 Other cirrhosis of liver; K72.10 Chronic hepatic failure without coma; R03.1 Nonspecific low blood-pressure reading; Z79.899 Other long term (current) drug therapy; Z88.8 Allergy status to other drugs, medicaments and biological substances; Z51.5 Encounter for palliative care
CPT/HCPCS: 10030; 36415; 36600; 49083; 49418; 70450; 75989; 76705; 80048; 80053; 81003; 82140; 82436; 82570; 82803; 83735; 84100; 84133; 84300; 84443; 85025; 85027; 85610; 85730; 87071; 87205; 89051; 96375; 99156; 99157; C1729; G0378; J0696; J1644; J1940; J1953; J3010; J3480; J3490; P9046; Q9967; A7048

== ENCOUNTER 2024-02-22 10:49 | Emergency (ER) | payer BC ==
[~2024-02-22] VITALS: Ht 167.6 cm; Wt 54.4 kg
[2024-02-22 13:21] VITALS: BP 136/78; PULSE 78; RESP 18; O2SAT 98
[2024-02-28] MEDS ORDERED: FURO40TA5 PO (02:35)
[2024-02-28] MEDS ORDERED: MUPI22O TP (02:35)
[2024-02-28] MEDS ORDERED: LORA0.5T83 PO (02:35)
[2024-02-28] MEDS ORDERED: SPIR100T5 PO (02:35)
[2024-02-28] MEDS ORDERED: POTA-364 PO (02:35)
[2024-02-28] MEDS ORDERED: HYDR-4060 PO (02:35)
[2024-02-28] MEDS ORDERED: LEVE500T19 PO (02:35)
[2024-02-28] MEDS ORDERED: ESCI-8 PO (02:35)
[2024-02-28] MEDS ORDERED: FURO20TA4 PO (06:07)
== END 2024-02-22 13:22 | disposition home or self-care (01) ==
LOC: EDH 10:49
DX: K74.60 Unspecified cirrhosis of liver (principal); Z79.899 Other long term (current) drug therapy; Z98.890 Other specified postprocedural states; Z88.8 Allergy status to other drugs, medicaments and biological substances

== ENCOUNTER 2024-02-23 10:44 | Emergency (ER) | payer BC ==
[~2024-02-23] VITALS: Ht 162.6 cm; Wt 47.2 kg
[2024-02-23 11:25] VITALS: BP 142/81; PULSE 110; RESP 18
== END 2024-02-23 12:09 | disposition home or self-care (01) ==
LOC: EDH 10:44
DX: K74.60 Unspecified cirrhosis of liver (principal)
CPT/HCPCS: 99281

== ENCOUNTER 2024-02-25 14:18 | Emergency (ER) | payer BC ==
[~2024-02-25] VITALS: Ht 162.6 cm; Wt 49.9 kg
[2024-02-25 14:34] VITALS: BP 134/81; PULSE 100; RESP 20; O2SAT 98
[2024-02-28] MEDS ORDERED: MUPI22O TP (02:35)
[2024-02-28] MEDS ORDERED: POTA-364 PO (02:35)
[2024-02-28] MEDS ORDERED: ESCI-8 PO (02:35)
[2024-02-28] MEDS ORDERED: HYDR-4060 PO (02:35)
[2024-02-28] MEDS ORDERED: FURO40TA5 PO (02:35)
[2024-02-28] MEDS ORDERED: LEVE500T19 PO (02:35)
[2024-02-28] MEDS ORDERED: LORA0.5T83 PO (02:35)
[2024-02-28] MEDS ORDERED: SPIR100T5 PO (02:35)
[2024-02-28] MEDS ORDERED: FURO20TA4 PO (06:07)
== END 2024-02-25 14:52 | disposition home or self-care (01) ==
LOC: EDH 14:18
DX: R18.8 Other ascites (principal); G43.909 Migraine, unspecified, not intractable, without status migrainosus; Z79.899 Other long term (current) drug therapy; Z98.890 Other specified postprocedural states; Z88.8 Allergy status to other drugs, medicaments and biological substances

== ENCOUNTER 2024-03-21 15:40 | Observation (INO) | payer BC ==
[~2024-03-21] VITALS: Ht 162.6 cm; Wt 55.1 kg
[~2024-03-21 15:40] MED LIST changes: -CALC-1277 PO; +ESCI-8 PO; +FURO20TA4 PO; -FURO40TA5 PO; +HYDR-4060 PO; -KEPPRA PO; -LACT10SO85 PO; +LEVE500T19 PO; +LORA0.5T83 PO; +POTA-364 PO; -POTASSIUM SUPPLIMENT PO; +SPIR100T5 PO; -SPIR50TA5 PO; -TYLENOL PM PO
[2024-03-21 16:14] LABS: BASOPHILS # (AUTO) 0.01 K/uL (0.00-0.20); BASOPHILS % (AUTO) 0.5 % (0.0-5.0); EOSINOPHILS # (AUTO) 0.08 K/uL (0.00-0.70); EOSINOPHILS % (AUTO) 4.1 % (0.0-8.0); HEMATOCRIT 28.5 % (36-48); IMMATURE GRANULOCYTE ABSOLUTE 0.01 K/uL (0-1); LYMPHOCYTES # (AUTO) 0.1 K/uL (1.0-4.8); LYMPHOCYTES % (AUTO) 5.2 % (21.0-51.0); MEAN CORPUSCULAR HEMOGLOBIN 25.4 pg (27.0-33.0); MEAN CORPUSCULAR HGB CONC 30.5 g/dL (32.0-36.0); MEAN CORPUSCULAR VOLUME 83.3 fL (79-99); MONOCYTES # (AUTO) 0.4 K/uL (0.1-1.0); MONOCYTES % (AUTO) 19.6 % (3.0-13.0); NEUTROPHILS # (AUTO) 1.4 K/uL (1.8-7.7); NEUTROPHILS % (AUTO) 70.1 % (40.0-77.0); PLATELET COUNT (AUTO) 79 K/uL (130-400); RED BLOOD CELL COUNT(AUTO) 3.42 MIL/uL (4.00-5.50); RED CELL DISTRIBUTION WIDTH 16.2 % (11.0-15.5); WHITE BLOOD COUNT (AUTO) 1.9 K/uL (4.8-10.8)
[2024-03-21 16:23] LABS: CREATININE 1.2 mg/dL (0.5-1.0); POTASSIUM 3.6 mmol/L (3.5-5.1)
[2024-03-21 16:24] LABS: PROTHROMBIN TIME 11.8 SEC (9.6-11.6)
[2024-03-21 16:26] LABS: PARTIAL THROMBOPLASTIN TIME 27.9 SEC (26.3-35.5)
[2024-03-21 16:27] LABS: ALBUMIN 1.9 g/dL (3.5-5.0); BILIRUBIN,TOTAL 0.5 mg/dL (0.2-1.0); TOTAL PROTEIN, SERUM 6.9 g/dL (6.0-8.3)
[2024-03-21] MEDS: DEXTROSE 5 %-0.45 % NACL 1,000 ML IV SCH (23:35)
[2024-03-22] VITALS (18 sets, daily range): BP systolic 104–168; BP diastolic 62–92; PULSE 93–109; RESP 18–22; O2SAT 97–100
[2024-03-22] MEDS: HYDROCODONE/ACETAMINOPHEN 5/325 MG TAB PO PRN (00:57)
[2024-03-22 06:10] LABS: BASOPHILS # (AUTO) 0.01 K/uL (0.00-0.20); BASOPHILS % (AUTO) 0.6 % (0.0-5.0); EOSINOPHILS # (AUTO) 0.05 K/uL (0.00-0.70); EOSINOPHILS % (AUTO) 2.9 % (0.0-8.0); HEMATOCRIT 34.1 % (36-48); IMMATURE GRANULOCYTE ABSOLUTE 0.01 K/uL (0-1); LYMPHOCYTES # (AUTO) 0.1 K/uL (1.0-4.8); LYMPHOCYTES % (AUTO) 5.8 % (21.0-51.0); MEAN CORPUSCULAR HEMOGLOBIN 25.2 pg (27.0-33.0); MEAN CORPUSCULAR HGB CONC 30.5 g/dL (32.0-36.0); MEAN CORPUSCULAR VOLUME 82.6 fL (79-99); MONOCYTES # (AUTO) 0.2 K/uL (0.1-1.0); MONOCYTES % (AUTO) 11.6 % (3.0-13.0); NEUTROPHILS # (AUTO) 1.4 K/uL (1.8-7.7); NEUTROPHILS % (AUTO) 78.5 % (40.0-77.0); PLATELET COUNT (AUTO) 87 K/uL (130-400); RED BLOOD CELL COUNT(AUTO) 4.13 MIL/uL (4.00-5.50); RED CELL DISTRIBUTION WIDTH 16.6 % (11.0-15.5); WHITE BLOOD COUNT (AUTO) 1.7 K/uL (4.8-10.8)
[2024-03-22 06:16] LABS: INR 0.97 (0.85-1.15); PROTHROMBIN TIME 11.5 SEC (9.6-11.6)
[2024-03-22 06:17] LABS: ALBUMIN 2.5 g/dL (3.5-5.0); BILIRUBIN,TOTAL 1.1 mg/dL (0.2-1.0); CREATININE 1.2 mg/dL (0.5-1.0); PARTIAL THROMBOPLASTIN TIME 29.2 SEC (26.3-35.5); POTASSIUM 3.4 mmol/L (3.5-5.1); TOTAL PROTEIN, SERUM 8.6 g/dL (6.0-8.3)
[2024-03-22] MEDS: LORAZEPAM 0.5 MG TABLET PO SCH (07:30)
[2024-03-22] MEDS: FUROSEMIDE 20 MG TABLET PO SCH (09:00)
[2024-03-22] MEDS: ESCITALOPRAM OXALATE PO SCH (09:00)
[2024-03-22 11:09] LABS: APPEARANCE BODY FLUID SLIGHTLY CLOUDY (CLEAR); COLOR,BODY FLUID YELLOW (LT YELLOW); SPECIMENTYPE,BODY FLUID ASCITES; TOTAL VOLUME,BODY FLUID 9000 mL
[2024-03-22 11:14] LABS: BODY FLUID RBC 2126 /cu. mm.; BODY FLUID WBC 173 /cu. mm.
[2024-03-22] MEDS: SPIRONOLACTONE 25 MG TAB PO SCH (11:25)
[2024-03-22] MEDS: KCL 20 MEQ ERTAB PO SCH (11:26)
[2024-03-22] MEDS: LEVETIRACETAM 500 MG TABLET PO SCH (11:26)
[2024-03-22] MEDS: ALBUMIN (HUMAN) 25% 200 ML IV SCH (11:27)
[2024-03-22 11:36] LABS: BF LYMPHOCYTE 30 %; BF MESOTHELIAL 34 %; BF MONOCYTE 31 %; BF TOTAL CELLS COUNTED 100
[2024-03-23 04:00] VITALS: BP 111/68; PULSE 95; RESP 19
[2024-03-23 08:00] VITALS: BP 124/89; PULSE 88; RESP 17; O2SAT 95
== END 2024-03-23 10:00 ==
LOC: EDH 15:40 → EDHIP 18:42 → 3BH 23:47
PROVIDERS: ADMIT Internal Medicine; ATTEND Internal Medicine
DX: K70.31 Alcoholic cirrhosis of liver with ascites (principal); D61.818 Other pancytopenia; K76.6 Portal hypertension; G40.909 Epilepsy, unspecified, not intractable, without status epilepticus; E83.42 Hypomagnesemia; F10.11 Alcohol abuse, in remission; Z79.899 Other long term (current) drug therapy
CPT/HCPCS: 99284; 82150; 80053 ×2; 82140 ×2; 83690; 85025 ×2; 85610 ×2; 85730 ×2; 36415 ×2; 71045; 96365; 89051; 87071; 87205; 49083; G0378 ×39; P9046; C1729

== ENCOUNTER 2024-04-02 10:08 | Emergency (ER) | payer BC ==
[~2024-04-02] VITALS: Ht 162.6 cm; Wt 47.2 kg
[2024-04-02 10:44] LABS: BASOPHILS # (AUTO) 0.01 K/uL (0.00-0.20); BASOPHILS % (AUTO) 0.5 % (0.0-5.0); EOSINOPHILS # (AUTO) 0.03 K/uL (0.00-0.70); EOSINOPHILS % (AUTO) 1.6 % (0.0-8.0); HEMATOCRIT 27.6 % (36-48); IMMATURE GRANULOCYTE ABSOLUTE 0.01 K/uL (0-1); LYMPHOCYTES # (AUTO) 0.1 K/uL (1.0-4.8); LYMPHOCYTES % (AUTO) 5.2 % (21.0-51.0); MEAN CORPUSCULAR HEMOGLOBIN 25.4 pg (27.0-33.0); MEAN CORPUSCULAR HGB CONC 30.8 g/dL (32.0-36.0); MEAN CORPUSCULAR VOLUME 82.4 fL (79-99); MONOCYTES # (AUTO) 0.3 K/uL (0.1-1.0); MONOCYTES % (AUTO) 16.1 % (3.0-13.0); NEUTROPHILS # (AUTO) 1.5 K/uL (1.8-7.7); NEUTROPHILS % (AUTO) 76.1 % (40.0-77.0); PLATELET COUNT (AUTO) 54 K/uL (130-400); RED BLOOD CELL COUNT(AUTO) 3.35 MIL/uL (4.00-5.50); RED CELL DISTRIBUTION WIDTH 17.2 % (11.0-15.5); WHITE BLOOD COUNT (AUTO) 1.9 K/uL (4.8-10.8)
[2024-04-02 10:58] LABS: CREATININE 1.5 mg/dL (0.5-1.0); POTASSIUM 4.1 mmol/L (3.5-5.1)
[2024-04-02 11:03] LABS: ALBUMIN 2.4 g/dL (3.5-5.0); BILIRUBIN,TOTAL 0.7 mg/dL (0.2-1.0); TOTAL PROTEIN, SERUM 7.4 g/dL (6.0-8.3)
[2024-04-02 11:23] LABS: PLATELET MORPHOLOGY COMMENT DECREASED
[2024-04-02 11:49] LABS: INR 1.27 (0.85-1.15); PARTIAL THROMBOPLASTIN TIME 29.1 SEC (26.3-35.5); PROTHROMBIN TIME 13.3 SEC (9.6-11.6)
[2024-04-02] MEDS: 0.9%NACL 1000ML 1,000 ML IV ONE (13:50)
[2024-04-02 15:24] LABS: APPEARANCE,URINE CLEAR (CLEAR); BILIRUBIN,URINE NEGATIVE (NEGATIVE); COLOR,URINE LIGHT-YELLOW (YELLOW); GLUCOSE, URINE (UA) NEGATIVE (NEGATIVE); KETONES,URINE NEGATIVE (NEGATIVE); LEUKOCYTE ESTERASE ,URINE NEGATIVE Leu/uL (NEGATIVE); NITRATE,URINE NEGATIVE (NEGATIVE); OCCULT BLOOD,URINE NEGATIVE (NEGATIVE); PROTEIN,URINE NEGATIVE (NEGATIVE); UROBILINOGEN,URINE 0.2 mg/dL (0.2-1.0)
[2024-04-02 15:27] LABS: ADD UA MICROSCOPIC NO
[2024-04-02 15:38] VITALS: BP 115/76; PULSE 78; RESP 16; O2SAT 97
== END 2024-04-02 15:47 ==
LOC: EDH 10:08
DX: K74.60 Unspecified cirrhosis of liver (principal); D61.818 Other pancytopenia; R18.8 Other ascites; R14.0 Abdominal distension (gaseous); R53.1 Weakness
CPT/HCPCS: 99283; 96360; 96361; 80053; 82140; 83690; 85025; 85610; 85730; 81003; 36415; J7030

== ENCOUNTER 2024-04-05 19:53 | Emergency (ER) | payer BC ==
[~2024-04-05] VITALS: Ht 154.9 cm; Wt 54.4 kg
[2024-04-05 20:39] LABS: BASOPHILS # (AUTO) 0.02 K/uL (0.00-0.20); BASOPHILS % (AUTO) 1.2 % (0.0-5.0); EOSINOPHILS # (AUTO) 0.06 K/uL (0.00-0.70); EOSINOPHILS % (AUTO) 3.7 % (0.0-8.0); HEMATOCRIT 27.2 % (36-48); LYMPHOCYTES # (AUTO) 0.1 K/uL (1.0-4.8); LYMPHOCYTES % (AUTO) 7.5 % (21.0-51.0); MEAN CORPUSCULAR HEMOGLOBIN 25.7 pg (27.0-33.0); MEAN CORPUSCULAR HGB CONC 32.4 g/dL (32.0-36.0); MEAN CORPUSCULAR VOLUME 79.3 fL (79-99); MONOCYTES # (AUTO) 0.2 K/uL (0.1-1.0); MONOCYTES % (AUTO) 11.8 % (3.0-13.0); NEUTROPHILS # (AUTO) 1.2 K/uL (1.8-7.7); NEUTROPHILS % (AUTO) 75.8 % (40.0-77.0); PLATELET COUNT (AUTO) 58 K/uL (130-400); RED BLOOD CELL COUNT(AUTO) 3.43 MIL/uL (4.00-5.50); RED CELL DISTRIBUTION WIDTH 17.7 % (11.0-15.5); WHITE BLOOD COUNT (AUTO) 1.6 K/uL (4.8-10.8)
[2024-04-05 20:49] LABS: CREATININE 1.4 mg/dL (0.5-1.0)
[2024-04-05 20:53] LABS: ALBUMIN 2.3 g/dL (3.5-5.0); BILIRUBIN,TOTAL 0.6 mg/dL (0.2-1.0); TOTAL PROTEIN, SERUM 7.6 g/dL (6.0-8.3)
[2024-04-05 21:22] LABS: INR 1.27 (0.85-1.15); PARTIAL THROMBOPLASTIN TIME 28.5 SEC (26.3-35.5); PROTHROMBIN TIME 13.3 SEC (9.6-11.6)
[2024-04-05 22:33] VITALS: BP 125/78; PULSE 66; RESP 20; O2SAT 95
[2024-04-05] MEDS: LACTULOSE 20 GM/30 ML UDCUP PO ONE (22:48)
== END 2024-04-05 23:00 | disposition home or self-care (01) ==
LOC: EDH 19:53
DX: R18.8 Other ascites (principal); R14.0 Abdominal distension (gaseous); E72.20 Disorder of urea cycle metabolism, unspecified; K74.60 Unspecified cirrhosis of liver; D64.9 Anemia, unspecified; Z88.8 Allergy status to other drugs, medicaments and biological substances; Z79.899 Other long term (current) drug therapy
CPT/HCPCS: 36415; 71045; 80053; 82140; 82550; 83690; 84484; 85025; 85610; 85730; 93005